=== PATIENT | female | born 1965 | race Caucasian/White ===

== ENCOUNTER 2022-11-07 11:49 | Outpatient (OUT) | payer OTHER, SELFPAY ==
--- NOTE | 2022-11-07 11:48 | XR_ITS ---
The [address] [address] Patient Name: MIMI BOWERS MRN: [id number] date: 1965 Sex: F Assigned Patient Location: [facility] Current Patient Location: [facility] Accession/Order Number: [id number] Exam Date: 11/07/2022 11:48 Report Date: 11/07/2022 20:30 At the request of: BETTE DUFF Procedure: XR foot RT min 3V PROCEDURE: XR foot RT min 3V COMPARISON: 07/11/2022 HISTORY: RIGHT FOOT PAIN FINDINGS: BONES:Stable triple arthrodesis. Posterior calcaneal osteotomy transfixed with 2 cannulated screws. Anterior calcaneal osteotomy and medial cuneiform osteotomy with wedged spacer. No acute fracture, dislocation or mechanical failure. Diffuse permeative pattern of the bones consistent with osteopenia. SOFT TISSUES:Negative. No visible soft tissue swelling. EFFUSION:None visible. OTHER: Negative. IMPRESSION: Stable triple arthrodesis Electronically authenticated by: MARIVEL MONTES DE OCA Date: 11/07/2022 20:30
== END 2022-11-07 11:50 | disposition home or self-care (01) ==
LOC: RAD 11:49
PROVIDERS: Visit Provider Podiatrist Foot & Ankle Surgery
DX: M79.671 Pain in right foot (principal); Z98.1 Arthrodesis status
CPT/HCPCS: 73630

== ENCOUNTER 2023-05-01 10:28 | Outpatient (OUT) | payer OTHER, SELFPAY ==
--- NOTE | 2023-05-01 | XR_ITS ---
The [address] [address] Patient Name: MIMI BOWERS MRN: [id number] date: 1965 Sex: F Assigned Patient Location: [facility] Current Patient Location: [facility] Accession/Order Number: [id number] Exam Date: 05/01/2023 10:37 Report Date: 05/01/2023 14:55 At the request of: BETTE DUFF Procedure: XR foot RT min 3V PROCEDURE: XR foot RT min 3V DATE: 05/01/2023 9:37 AM MANAGER MONITORING COMPARISONS: None CLINICAL INDICATION: RIGHT FOOT PAIN FINDINGS: There is no evidence of fractures or other acute osseous abnormalities. Posterior calcaneal osteotomy fixed by 2 screws remains stable. Lateral hind foot and medial midfoot postop changes also identified, stable Bone demineralization is again identified. Moderate first carpometacarpal degenerative changes again identified. There is mild scattered midfoot degenerative change. There is a small spur off the posterior inferior os calcis. There is mild tibiotalar degenerative change. XR/XR foot RT min 3V IMPRESSION: Stable postop changes right foot when compared to 11/07/2022 Electronically authenticated by: JESS CRESPO Date: 05/01/2023 14:55
== END 2023-05-01 10:29 | disposition home or self-care (01) ==
LOC: RAD 10:28
PROVIDERS: Visit Provider Podiatrist Foot & Ankle Surgery
DX: M21.171 Varus deformity, not elsewhere classified, right ankle (principal)
CPT/HCPCS: 73630

== ENCOUNTER 2023-11-26 09:55 | Outpatient (OUT) | payer OTHER, SELFPAY ==
--- NOTE | 2023-11-26 | XR_ITS ---
[address] [address] Patient Name: MIMI BOWERS MRN: [id number] date: 1965 Sex: F Assigned Patient Location: Current Patient Location: Accession/Order Number: [id number] Exam Date: 11/26/2023 10:02 Report Date: 11/26/2023 15:23 At the request of: BETTE DUFF Procedure: XR ankle RT min 3V PROCEDURE: XR foot RT min 3V, XR ankle RT min 3V COMPARISON: 05/01/2023 HISTORY: RIGHT FOOT PAIN FINDINGS: BONES:No acute fracture or dislocation. Stable triple arthrodesis with posterior calcaneal osteotomy transfixed with 2 screws. Osteotomy and wedged spacer placement anterior calcaneus and medial cuneiform. Moderate degenerative changes with joint space narrowing and marginal osteophyte formation. Enthesopathic spurring of the calcaneus SOFT TISSUES:Negative. No visible soft tissue swelling. EFFUSION:None visible. OTHER: Negative. XR/XR ankle RT min 3V IMPRESSION: Stable triple arthrodesis and degenerative changes Electronically authenticated by: MARIVEL MONTES DE OCA Date: 11/26/2023 15:23
--- NOTE | 2023-11-26 | XR_ITS ---
[address] [address] Patient Name: MIMI BOWERS MRN: [id number] date: 1965 Sex: F Assigned Patient Location: Current Patient Location: Accession/Order Number: [id number] Exam Date: 11/26/2023 09:56 Report Date: 11/26/2023 15:23 At the request of: BETTE DUFF Procedure: XR foot RT min 3V PROCEDURE: XR foot RT min 3V, XR ankle RT min 3V COMPARISON: 05/01/2023 HISTORY: RIGHT FOOT PAIN FINDINGS: BONES:No acute fracture or dislocation. Stable triple arthrodesis with posterior calcaneal osteotomy transfixed with 2 screws. Osteotomy and wedged spacer placement anterior calcaneus and medial cuneiform. Moderate degenerative changes with joint space narrowing and marginal osteophyte formation. Enthesopathic spurring of the calcaneus SOFT TISSUES:Negative. No visible soft tissue swelling. EFFUSION:None visible. OTHER: Negative. XR/XR foot RT min 3V IMPRESSION: Stable triple arthrodesis and degenerative changes Electronically authenticated by: MARIVEL MONTES DE OCA Date: 11/26/2023 15:23
--- OUTSIDE RECORDS SUMMARY | 2023-11-26 10:17 | XMS_ITS | CCD ---
Author Organization [facility] Care Team Providers Care Electric Meter Technician Name Role Phone DRAKE BEULAH Unavailable Unavailable Kaushik Jay MD Primary Care Provider [phone] Kaushik Jay MD Primary Care Provider BETTE DUFF Consulting Unavailable BETTE DUFF Admitting Unavailable HIGHLMAO, BETTE Aguilar Attending Unavailable DENZEL HARRINGTON Consulting Unavailable BETTE DUFF Attending Unavailable BETTE DUFF Consulting Unavailable BETTE DUFF Admitting Unavailable HIGHLMAO, BETTE Aguilar Attending Unavailable ZIEBRAY, DR JERRY Herrera Consulting Unavailable HIGHLANDERBETTE Admitting Unavailable HIGHLANDERBETTE Consulting Unavailable RAGHAVLADAN Consulting Unavailable JUNGERMANNMANN Consulting Unavailable CONCEPCIÓN, BRIDGET WALTON Consulting Unava ilable ARIANA, PADMA Consulting Unavailable BETTE DUFF Attending Unavailable WEST, DR MARIVEL Zurita Consulting Unavailable BETTE DUFF Admitting Unavailable HIGHLANDERBETTE Consulting Unavailable BETTE DUFF Attending Unavailable HIGHLBETTE CAVANAUGH Admitting Unavailable WEST, DR MARIVEL Zurita Consulting Unavailable HIGHLBETTE CAVANAUGH Consulting Unavailable ZIEBER, DR JERRY Herrera Consulting Unavailable NAKUL BERNAL Admitting Unavailable NAKUL BERNAL Attending Unavailable NAKUL BERNAL Consulting Unavailable BETTE DUFF Attending Unavailable HIGHLBETTE CAVANAUGH Admitting Unavailable ZIEBER, DR JRERY Herrera Consulting Unavailable HIGHLBETTE CAVANAUGH Consulting Unavailable ADITI GUEVARA Referring UnavailREX Austin Primary Care Unavailable KAUSHIK JAY Attending Unavailable KAUSHIK JAY Referring Unavailable REX NEVES Primary Care Unavailable Babita Boyce Primary Care Physician Unavailab Babita Gallo Unavailable Unavailable Dusty Eldridge Primary Care Physician Unavail able Medications Current Medications Medication Drug Class(es) Dates Sig (Normalized) Sig (Original) betamethasone 0.5 mg/ml / clotrimazole 10 mg/ml topical cream (1 source) Azole Antifungal, Corticosteroid Start: 07-02-2019 clotrimazole-beta methasone (LOTRISONE) 1-0.05 % cream Indications: Skin yeast infection Apply topically 2 times daily. 1 Tube 1 07/02/2019 Active cetirizine hydrochloride 5 mg oral tablet (1 source) Histamine-1 Receptor Antagonist take 1 tablet by mouth once daily cetirizine (ZYRTEC) 5 MG tablet Take 5 mg by mouth daily 0 Active escitalopram 10 mg oral tablet (4 sources) Serotonin Reuptake Inhibitor Start: 05-14-2019 take 1 tablet by mouth once daily escitalopram (LEXAPRO) 10 MG tablet TAKE 1 TABLET BY MOUTH EVERY DAY 90 tablet 0 05/22/2021 Active fluconazole 150 mg oral tablet (1 source) Azole Antifungal Start: 07-02-2019 fluconazole (DIFLUCAN) 150 MG tablet Indications: Skin yeast infection Take 1 tablet daily for 3 days. 3 tablet 0 07/02/2019 Active loratadine 10 mg oral tablet (2 sources) loratadine (CLARITIN) 10 MG tablet Take 10 mg by mouth 0 Active [place]-3 Fatty Acids (FISH OIL BURP-LESS PO) (2 sources) [place]-3 Fatty Acids (FISH OIL BURP-LESS PO) Take by mouth 0 Active Probiotic Product (PROBIOTIC BLEND PO) (1 source) Probiotic Produc t (PROBIOTIC BLEND PO) Take by mouth 0 Active Completed/Discontinued Medications Medication Drug Class(es) Dates Sig (Normalized) Sig (Original) FIBER COMPLETE PO (2 sources) FIBER COMPLETE P O Take by mouth 0 Active Probiotic 15 billion cell capsule (2 sources) take 1 capsule by mo uth once daily Probiotic 15 billion cell capsule take 1 capsule by oral route daily vitamin B complex capsule (2 sources) take 1 capsule by mo uth once daily vitamin B complex capsule take 1 capsule by oral route daily Zinc Balance 15 mg-1 mg capsule (2 sources) take 1 capsule by mo uth once daily Zinc Balance 15 mg-1 mg capsule take 1 capsule by oral route daily Problems Active Problems Problem Classification Problem Date Documented Date Episodic/Chronic Acquired foot deformities (16 sources) Other acquired deformities of right foot; Translations: [Varus deformity, not elsewhere classified, right ankle] Onset: 12-09-2021 Episodic Anxiety disorders (3 sources) Generalized anxiety disorder; Translations: [Generalized anxiety disorder] Onset: 03-30-2017 03-30-2017 Chronic Neoplasms of unspecified nature or uncertain behavior (2 sources) Neoplasm of uncertain behavior of skin Onset: 10-02-2023 Episodic Other acquired deformities (1 source) Contracture, right ankle; Translations: [CONTRACTURE RIGHT ANKLE] Onset: 05-17-2022 Chronic Other aftercare (1 source) Other ocean transportation intermediary (current) drug therapy; Translations: [OTH [facility] CURRENT DRUG THERAPY] Onset: 05-17-2022 Episodic Other and unspecified benign neoplasm (2 sources) Melanocytic nevi, unspecified Onset: 10-02-2023 Episodic Other and unspecified benign neoplasm (2 sources) Hemangioma of skin and subcutaneous tissue Onset: 10-02-2023 Episodic Other circulatory disease (2 sources) Nevus, non-neoplastic Onset: 10-02-2023 Episodic Other connective tissue disease (5 sources) Posterior tibial tendinitis, right leg; Translations: [POSTERIOR TIBIAL TENDINITIS RT LEG] Onset: 04-21-2022 Episodic Other non-epithelial cancer of skin (2 sources) Unspecified malignant neoplasm of skin, unspecified; Translations: [Basal cell carcinoma of skin of nose] Onset: 11-19-2023 Episodic Other non-traumatic joint disorders (1 source) Other instability, right foot; Translations: [OTHER INSTABILITY RIGHT FOOT] Onset: 05-17-2022 Episodic Other screening for suspected conditions (not mental disorders or infectious disease) (4 sources) Patient encounter status; Translations: [Encounter for screening mammogram for malignant neoplasm of breast] Onset: 12-30-2017 Resolved: 01-29-2018 Episodic Other skin disorders (2 sources) Other melanin hyperpigmentation Onset: 10-02-2023 Episodic Other skin disorders (2 sources) Other seborrheic keratosis Onset: 10-02-2023 Episodic Unclassified (2 sources) Patient encounter status Onset: 12-30-2017 Resolved: 01-29-2018 Unclassified (1 source) CONTACT W/AND (SUSP) EXPOS COVID-19; Translations: [CONTACT W/AND (SUSP) EXPOS COVID-19] Onset: 04-30-2022 Past or Other Problems Problem Classification Problem Date Documented Da te Episodic/Chronic Other connective tissue disease (1 source) Pain in right foot; Translations: [PAIN IN RIGHT FOOT] Onset: 12-09-2021 Episodic Other connective tissue disease (1 source) Pain in left foot; Translations: [PAIN IN LEFT FOOT] Onset: 12-09-2021 Episodic Other non-traumatic joint disorders (4 sources) Pain in right ankle and joints of right foot; Translations: [PAIN IN RIGHT ANKLE] Onset: 12-06-2021 Episodic Other non-traumatic joint disorders (1 source) Pain in left ankle and joints of left foot; Translations: [PAIN IN LEFT ANKLE] Onset: 12-09-2021 Episodic Results Test Name Value Interpretation Reference Range Facility No Panel Informationon 10-01 Tobacco smoking status Non-Smoker Invalid Interpretation Code Dissolve HPV DNA High Riskon 06-15-19 HPV Interp [facility] Comment on above: Result Comment: This test amplifies and detects DNA of 14 high-risk HPV types associated with cervical cancer and its precursor lesions (HPV types 16,18, 31, 33, 35, 39, 45, 51, 52, 56, 58, 59, 66, and 68). Sensitivity may be affected by specimen collection methods, stage of infection, and the presence of interfering substances. Results should be interpreted in conjunction with other available laboratory and clinical data. A negative high-risk HPV result does not exclude the possibility of future cytologic HSIL or underlying CIN2-3 or cancer. This test is intended for medical purposes only and is not valid for the evaluation of suspected sexual abuse or for other forensic purposes. Performed By: #### H PVH #### [facility] [address] [place] [address] [employer] Teacher: Robert Nguyễn MD HPV Type 16 Not detected [facility] Comment on above: Performed By: #### H PVH #### [facility] [place] [address] Public School Teacher: Robert Nguyễn MD HPV Type 18 Not detected [facility] Comment on above: Performed By: #### H PVH #### [facility] [address] [place] [address] Public School Teacher: Robert Nguyễn MD Other High Risk HPV Not detected Normal [facility] Comment on above: Performed By: #### H PVH #### [address] [place], [place] [id number] Public School Teacher: Robert Nguyễn MD HPV DNA High Riskon 06-14-19 24 HPV Sample .THIN PREP Normal [facility] Comment on above: Performed By: #### H PVH #### [address] [id number] Public School Teacher: Robert Nguyễn MD Source CERVICAL MATERIAL Normal [facility] Comment on above: Performed By: #### H PVH #### [address] [id number] Public School Teacher: Robert Nguyễn MD Cytology Reporton 06-13-2023 Cytology report Cyto stain.thin prep Doc (Cvx/Vag) (NOTE) Path Number: [id number] DIAGNOSIS Imaged ThinPrep Pap - Cervical (1 monolayer slide): Specimen Adequacy: Satisfactory for evaluation. - Endocervical/transformati on zone component present. Descriptive Diagnosis: Negative for intraepithelial lesion or malignancy. Comments: Specimen was screened at [facility], [address] [place] [id number] [employer] Screener: SHERRY Electronically Signed Out YEHUDA Marquis(ASCP) cs/07/13/2023 Procedure/Addendum HPV Procedure Report Date Ordered: 06/14/2023 Status: Signed Out Date Complete: 06/15/2023 By: System Interface Date Reported: 06/15/2023 Sample: HPV Type 16 Result: Not Detected Ref Range: (Not Detected) Sample: HPV Type 18 Result: Not Detected Ref Range: (Not Detected) Sample: Other High Risk HPV Result: Not Detected Ref Range: (Not Detected) Sample: HPV Interp Result: Ref Range: (Not Detected) This test amplifies and detects DNA of 14 high-risk HPV types associated with cervical cancer and its precursor lesions (HPV types 16,18, 31, 33, 35, 39, 45, 51, 52, 56, 58, 59, 66, and 68). Sensitivity may be affected by specimen collection methods, stage of infection, and the presence of interfering substances. Results should be interpreted in conjunction with other available laboratory and clinical data. A negative high-risk HPV result does not exclude the possibility of future cytologic HSIL or underlying CIN2-3 or cancer. This test is intended for medical purposes only and is not valid for the evaluation of suspected sexual abuse or for other forensic purposes. Performed at [address] [address] ([phone] Source of Specimen: A: Imaged ThinPrep Pap - Cervical (1 monolayer slide) HPV Reflex?.................. ....HPV Regardless Clinical History Postmenopausal Z12.4 Encounter for screening for malignant neoplasm of cervix LMP: 04/22/2019 Processing Lab: [address] [id number] [place] [address] This Pap Test has been evaluated with the assistance of the ThinPrep Pap Test Imaging System. The Pap smear is a screening test primarily for squamous epithelial lesions, which is subject to both false negative and false positive results. Your patient should be reminded to consult you immediately if she experiences any suspicious signs or symptoms, regardless of her Pap smear result. GYNECOLOGIC CYTOLOGY REPORT Patient Name: MIMI LAMBERT [facility] Rec: [id number] [facility] ANATOMIC PATHOLOGY [address] [place] [address]. [place], [place] [address] Normal [facility] Laboratory - Microbiology an d Antimicrobial susceptibilityon 06-13-2023 HPV 16+18+31+33+35+45+5 1+52+56 DNA Probe Ql (Cvx) HPV-DNA Test Invalid Interpretation Code [facility] [employer] beauty supply [facility] DENNIS DIGITAL SCREEN FREDRICK Moncada 06-12-2023 [facility] DENNIS DIGITAL SCREEN BILATERAL EXAMINATION: SCREENING DIGITAL BILATERAL MAMMOGRAM WITH TOMOSYNTHESIS, 06/12/2023 TECHNIQUE: Screening mammography was performed with tomosynthesis including MLO and CC views of the bilateral breasts. Computer aided detection was used for the interpretation of this exam. COMPARISON: May 29, 2021 and 2016 HISTORY: Screening. FINDINGS: Breasts are composed of scattered fibroglandular density. There is no dominant mass, architectural distortion or concerning grouping of microcalcification in either breast. IMPRESSION: No mammographic evidence of malignancy BIRADS: BIRADS - CATEGORY 1 Negative. Normal interval follow-up is recommended in 12 months. OVERALL ASSESSMENT - NEGATIVE A letter of notification will be sent to the patient regarding the results. The [employer] recommends annual mammograms for women 40 years and older. Interpreted by: Carl Hernandez DO Signed by: Carl Hernandez DO 06/12/23 CC Recipients: Aditi Guevara APRN - CNM - In Basket Final result Normal [facility] Radiologyon 06-12-2023 MG Breast Screening Mammogram Invalid Interpretation Code 50 - 74 Dissolve POINT OF CARE GLUCOSEon 04-12 Glucose [Mass/Vol] 120 mg/dL Critically high 74-106 [facility] Comment on above: Performed By: #### P OCGLUC ####[facility] [id number] [place], [place] [address]Kx. Aleyda Hwang Glucose [Mass/Vol] 86 mg/dL Normal 74-106 [facility] Comment on above: Performed By: #### P OCGLUC ####[facility] [id number] [id number]. Aleyda Hwang Covid-19 PCR (CVDTBH)on 04-12 SARS-CoV-2 (COVID-19) RNA KIT+probe Ql (Unsp spec) Not detected Normal NOT DETECTED [facility] Comment on above: Result Comment: This test is not yet approved or cleared by the [place] FDA. When there are no FDA-approved or cleared tests available, and other criteria are met, FDA can make tests available under an emergency access mechanism called an Emergency Use Authorization (EUA). The EUA for this test is supported by the [place] of Health and Human Service's (HHS's) declaration that circumstances exist to justify the emergency use of in vitro diagnostics for the detection and/or diagnosis of the virus that causes COVID-19. This EUA will remain in effect (meaning this test can be used) for the duration of the COVID-19 declaration justifying emergency of IVDs, unless it is terminated or revoked by FDA (after which the test may no longer be used). When diagnostic testing is negative, the possibility of a false negative should be considered in the context of a patient's recent exposures and the presence of clinical signs and symptoms consistent with SARS-CoV-2. Performed By: #### [facility] #### [facility] [address] [place] [address] Dr. Aleyda Hwang CBC AUTO DIFFon 04-16-2022 BASO # 0.0 103/ul Normal 0.0-0.1 [facility] Comment on above: Performed By: #### C BC #### [facility] [address] [place] [address] Dr. Aleyda Hwang Basophils/100 WBC (Bld) 0.5 % Normal 0.2-2.0 [facility] Comment on above: Performed By: #### C BC #### [facility] [address] [place] [address] Dr. Aleyda Hwang EO # 0.3 103/ul Normal 0.0-0.7 [facility] Comment on above: Performed By: #### C BC #### [facility] [address] [place] [address] Dr. Aleyda Hwang Eosinophils/100 WBC (Bld) 4.5 % Normal 0.9-7.0 [facility] Comment on above: Performed By: #### C BC #### [facility] [address] [place] [address] Dr. Aleyda Hwang Erythrocyte distribution width (RBC) [Ratio] 12.8 % Normal 11.0-15.0 [facility] Comment on above: Performed By: #### C BC #### [facility] [address] [place] [address] Dr. Aleyda Hwang Hematocrit (Bld) [Volume fraction] 39.5 % Normal 36.0-48.0 [facility] Comment on above: Performed By: #### C BC #### [facility] [address] [place] [address] Dr. Aleyda Hwang Hemoglobin (Bld) [Mass/Vol] 13.4 g/dL Normal 12.0-16.0 [facility] Comment on above: Performed By: #### C BC #### [facility] [address] [place] [address] Dr. Aleyda Hwang IG # 0.02 10e3/ul Normal 0.00-0.03 [facility] Comment on above: Performed By: #### C BC #### [facility] [address] [place] [address] Dr. Aleyda Hwang IG % 0.3 % Normal 0.0-0.5 [facility] Comment on above: Performed By: #### C BC #### [facility] [address] [place] [address] Dr. Aleyda Hwang LYMPH # 1.7 103/ul Normal 1.2-3.8 [facility] Comment on above: Performed By: #### C BC #### [facility] [address] [place] [address] Dr. Aleyda Hwang Lymphocytes/100 WBC (Bld) 26.9 % Normal 20.5-60.0 [facility] Comment on above: Performed By: #### C BC #### [facility] [address] [place] [address] Dr. Aleyda Hwang MANUAL DIFF REQ NO Normal [facility] Comment on above: Performed By: #### C BC #### [facility] [address] [place] [address] Dr. Aleyda Hwang MCH (RBC) [Entitic mass] 30.1 pg Normal 26.7-34.0 [facility] Comment on above: Performed By: #### C BC #### [facility] [address] [place] [address] Dr. Aleyda Hwang MCHC (RBC) [Mass/Vol] 33.9 g/dL Normal 29.9-35.2 [facility] Comment on above: Performed By: #### C BC #### [facility] [address] [place] [address] Dr. Aleyda Hwang MCV (RBC) [Entitic vol] 88.8 fL Normal 81.0-99.0 [facility] Comment on above: Performed By: #### C BC #### [facility] [address] [place] [address] Dr. Aleyda Hwang MONO # 0.4 103/ul Normal 0.3-0.8 [facility] Comment on above: Performed By: #### C BC #### [facility] [address] [place] [address] Dr. Aleyda Hwang Monocytes/100 WBC (Bld) 6.8 % Normal 1.7-12.0 [facility] Comment on above: Performed By: #### C BC #### [facility] [address] [place] [address] Dr. Aleyda Hwang NEUT # 3.8 103/ul Normal 1.4-6.5 [facility] Comment on above: Performed By: #### C BC #### [facility] [address] [place] [address] Dr. Aleyda Hwang Neutrophils/100 WBC (Bld) 61.0 % Normal 43.0-75.0 [facility] Comment on above: Performed By: #### C BC #### [facility] [address] [place] [address] Dr. Aleyda Hwang Platelet mean volume (Bld) [Entitic vol] 8.7 fL Critically low 9.5-13.5 [facility] Comment on above: Performed By: #### C BC #### [facility] [address] [place] [address] Dr. Aleyda Hwang PLT 202 103/ul Normal 150-450 [facility] Comment on above: Performed By: #### C BC #### [facility] [address] [place] [address] Dr. Aleyda Hwang RBC 4.45 106/ul Normal 4.20-5.40 [facility] Comment on above: Performed By: #### C BC #### [facility] [address] [place] [address] Dr. Aleyda Hwang WBC 6.2 103/ul Normal 4.0-11.0 [facility] Comment on above: Performed By: #### C BC #### [facility] [address] [place] [address] Dr. Aleyda Hwagn PROF CHEM 8 (BAS METB)on Anion gap [Moles/Vol] 10.7 mmol/L Normal [facility] Comment on above: Performed By: #### B MP #### [facility] [address] [place] [address] Dr. Aleyda Hwang Calcium [Mass/Vol] 9.6 mg/dL Normal 8.5-10.1 [facility] Comment on above: Performed By: #### B MP #### [facility] [address] [place] [address] Dr. Aleyda Hwang Chloride [Moles/Vol] 102 mmol/L Normal 98-107 [facility] Comment on above: Performed By: #### B MP #### [facility] [address] [place] [address] Dr. Aleyda Hwang CO2 [Moles/Vol] 31.3 mmol/L Normal 21.0-32.0 [facility] Comment on above: Performed By: #### B MP #### [facility] [address] [place] [address] Dr. Aleyda Hwang Creatinine [Mass/Vol] 0.71 mg/dL Normal 0.55-1.02 [facility] Comment on above: Performed By: #### B MP #### [facility] [address] [place] [address] Dr. Aleyda Hwang EGFR-AF MALIAN >60 Normal >=60 [facility] Comment on above: Performed By: #### B MP #### [facility] [address] [place] [address] Dr. Aleyda Hwang EGFR-NON AF MALIAN >60 Normal >=60 [facility] Comment on above: Performed By: #### B MP #### [facility] [address] [place] [address] Dr. Aleyda Hwang Glucose [Mass/Vol] 96 mg/dL Normal 74-106 [facility] Comment on above: Performed By: #### B MP #### [facility] [address] [address] [address] Aleyda Hwang Potassium [Moles/Vol] 4.0 mmol/L Normal 3.5-5.1 [facility] Comment on above: Performed By: #### B MP #### [facility] [address] [address] [address] Aleyda Hwang Sodium [Moles/Vol] 140 mmol/L Normal 136-145 [facility] Comment on above: Performed By: #### B MP #### [facility] [address] [address] [address] Aleyda Hwang Urea nitrogen [Mass/Vol] 16.0 mg/dL Normal 7.0-18.0 [facility] Comment on above: Performed By: #### B MP #### [facility] [address] [address] [address] Aleyda Hwang Urea nitrogen/Creatinine [Mass ratio] 22.5 mg/mg Normal [facility] Comment on above: Performed By: #### B MP #### [facility] [address] [address] [address] Aleyda Hwang XR FOOT ROJELIO MIN 3 VIEWSon XR FOOT ROJELIO MIN 3 VIEWS EXAMINATION: XR ANKLE ROJELIO MIN 3 VIEWS, XR FOOT ROJELIO MIN 3 VIEWS HISTORY: Bilateral ankle joint pain COMPARISON: No relevant comparison available. FINDINGS: RIGHT FINDINGS: BONES: No acute fracture or dislocation. Marked flattening of the plantar arch. Mild degenerative changes. Mild enthesopathic spurring of the calcaneus. SOFT TISSUES: Negative. No visible soft tissue swelling. OTHER: Negative. LEFT FINDINGS: BONES: Posterior calcaneal osteotomy transfixed with 2 cannulated lag screws. Medial plate and screws across the medial and intermediate cuneiform. Moderate flattening of the plantar arch SOFT TISSUES: Negative. No visible soft tissue swelling. OTHER: Negative. IMPRESSION: RIGHT CONCLUSION: Pes planus LEFT CONCLUSION: Postsurgical changes Electronically authenticated by: MARIVEL MONTES DE OCA Date: 2021-12-07 06:24 Normal [facility] DOLLY DENNIS DIGITAL SCREEN SELF REFERRAL W OR WO CAD BILATERALon 05-29-2021 No mammographic evid ence of malignancy. Based on the Tyrer-Cuzick (JOSE L) model, this patient's lifetime risk for developing breast cancer is 21.5%. The [employer] considers women with a 20 percent or greater lifetime risk for developing breast cancer as high risk . Women at risk for breast cancer may benefit from additional screening, which may include an annual screening mammogram alternating every six (6) months with a breast MRI, as appropriate. Recommend that this patient consult with her preferred provider about: A Genetic Counseling Consultation to discuss formal risk assessment, and a Medical Oncology Consultation to discuss risk reduction strategies. Assistance, if requested, is available through the [facility] at [phone], or by placing an [facility] Ambulatory referral to the High-Risk Breast Clinic . BIRADS: BIRADS - CATEGORY 1 Negative. Normal interval follow-up is recommended in 12 months. OVERALL ASSESSMENT - NEGATIVE A letter of notification will be sent to the patient regarding the results. The [employer] recommends annual mammograms for women 40 years and older. [facility] EXAMINATION: SCREENING DIGITAL BILATERAL MAMMOGRAM WITH TOMOSYNTHESIS, 05/29/2021 TECHNIQUE: Screening mammography of the bilateral breasts was performed with tomosynthesis. 2D standard and 3D tomosynthesis combination imaging performed through both breasts in the MLO and CC projection. Computer aided detection was utilized in the interpretation of this exam. COMPARISON: 2016, 08 May 2013 HISTORY: Screening. Calculated Tyrer-Cuzick lifetime risk score is 21.5% FINDINGS: There are scattered areas of fibroglandular density. No new or concerning masses, suspicious calcifications, foci of architectural distortion or significant interval changes are detected. [facility] Radiology Study observation (narrative) [employer] Phone: [facility] DENNIS DIGITAL SCREEN SELF REFERRAL W OR WO CAD BILATERALOrdered By: Eran Jolly on 05-29-2021 [employer] Phone: POTASSIUMon 08-15-2017 Potassium molar conc 4.6 mmol/L Normal 3.5-5.4 [facility] Comment on above: Result Comment: EFFECTIVE 06/24/2017 CLINICAL CHEMISTRY PLATFORM CHANGES IN MAIN LABORATORY ARE ASSOCIATED WITH REFERENCE RANGE CHANGES FOR A NUMBER OF ANALYTES. PLEASE REVIEW REFERENCE INTERVALS CAREFULLY Pat Yorxs, [place]. [address] [place], [place] [address]Laboratory Director: Josue Cristobal M.D.CLIA No. [id number] CAP Accreditation No. [id number] COMPREHENSIVE METABOLIC PANE L WITH GFRon 08-06-2017 Alanine aminotransferase (ALT) 15 U/L Normal 5-40 [facility] Albumin 4.3 g/dL Normal 3.5-5.2 [facility] ALK PHOS 57 U/L Normal 30-103 [facility] Anion gap 11 mmol/L Normal 10-19 [facility] AST-SGOT 20 U/L Normal 9-40 [facility] Bilirubin (direct) 0.4 mg/dL Normal <1.3 [facility] Calcium 9.6 mg/dL Normal 8.5-10.5 [facility] Chloride 103 mmol/L Normal 95-107 [facility] CO2 27 mmol/L Normal 19-31 [facility] Creatinine 0.7 mg/dL Normal 0.6-1.3 [facility] eGFR (black) 116.3 mL/min/1.73 m2 Normal >59 [facility] eGFR (non-black) 100.3 mL/min/1.73 m2 Normal >59 [facility] Comment on above: Result Comment: * ES TIMATED GFR (eGFR) IS CALCULATED FROM SERUM CREATININE AND OTHER VARIABLES AFFECTING ITS VALUE (AGE, RACE, AND SEX). * FOR PATIENT WITH ESTABLISHED CHRONIC KIDNEY DISEASE, THE CHART BELOW DEFINES STAGES WITH eGFR VALUES. Stage 1 90 mL/min/1.73 m2 or greater Stage 2 60-89 mL/min/1.73 m2 Stage 3 30-59 mL/min/1.73 m2 Stage 4 15-29 mL/min/1.73 m2 Stage 5 14 mL/min/1.73 m2 or less Glucose mass conc 91 mg/dL Normal 70-99 [facility] Comment on above: Result Comment: DIAG NOSTIC THRESHOLDS FOR DIABETES AND IMPAIRED FASTING GLUCOSE (IFG) FASTING PLASMA GLUCOSE NORMAL <100 mg/dL IFG 100-125 mg/dL DIABETES >/= 126 mg/dL GESTATIONAL DIABETES >/= 92 mg/dL Potassium molar conc 5.6 mmol/L High 3.5-5.4 [facility] Comment on above: Result Comment: P LEASE NOTE: This result has been confirmed by duplicate analysis. Hemolysis (which may affect the result) WAS NOT present. Sodium 141 mmol/L Normal 135-146 [facility] T. PROTEIN 6.3 g/dL Normal 6.1-8.3 [facility] Urea nitrogen 17 mg/dL Normal 8-23 [facility] LIPID PANEL (INCLUDES CALCUL ATED LDL)on 08-06-2017 Cholesterol 188 mg/dL Normal <200 [facility] Cholesterol to HDL Ratio 2.8 {ratio} Normal <5 [facility] HDL-CHOL 67 mg/dL Normal >39 [facility] Comment on above: Result Comment: HDL <40 mg/dL IS A RISK FACTOR FOR CORONARY HEART DISEASE. HDL >60 mg/dL IS A NEGATIVE RISK FACTOR FOR CORONARY HEART DISEASE. LDL to HDL Ratio 1.6 Normal <3.5 [facility] LDL-CHOL, CALCULATED 109 mg/dL Normal <130 [facility] Comment on above: Result Comment: LDL CHOLESTEROL REFERENCE RANGE FOR 0-19 YEARS: DESIRABLE <110 mg/dL, BORDERLINE 110-129, HIGH RISK >130 LDL CHOLESTEROL REFERENCE RANGE FOR ADULTS: DESIRABLE <100 mg/dL, BORDERLINE 130-159, HIGH RISK >160REFERENCE RANGES REVISED 10/21/15 ACCORDING TO NCEP GUIDELINES Triglyceride 60 mg/dL Normal <150 [facility] VLDL-CHOL, CALCULATED 12 mg/dL Normal <30 [facility] TSHon 08-06-2017 Thyroid stimulating hormone (TSH) 1.06 uIU/mL Normal 0.40-4.10 [facility] Comment on above: Result Comment: EFFECTIVE 06/24/2017 CLINICAL CHEMISTRY PLATFORM CHANGES IN MAIN LABORATORY ARE ASSOCIATED WITH REFERENCE RANGE CHANGES FOR A NUMBER OF ANALYTES. PLEASE REVIEW REFERENCE INTERVALS CAREFULLY Pat Yorxs, [place]. [address] [place], [place] [address]Laboratory Director: Josue Cristobal M.D.CLIA No. [id number] CAP Accreditation No. [id number] CBC W/AUTO DIFFon 08-05-2017 % NEUTROPHILS 65.4 % Normal [facility] ABS BASOPHILS 0.0 K/ul Normal 0.0-0.1 [facility] Basophils/100 WBC Auto (Bld) 0.6 % Normal [facility] Eosinophils 0.2 10*3/uL Normal 0.1-0.4 [facility] Eosinophils/100 leukocytes 2.7 % Normal [facility] Erythrocyte distribution width Auto Ratio (RBC) 12.7 % Normal 10.8-14.8 [facility] Erythrocytes (RBC) 4.23 10*6/uL Normal 4.00-5.50 [facility] Hematocrit (HCT) 39.3 % Normal 36.0-48.0 [facility] Hemoglobin mass conc (Bld) 13.3 g/dL Normal 12.0-16.0 [facility] Lymphocytes 1.6 10*3/uL Normal 0.8-5.2 [facility] Lymphocytes/100 leukocytes 23.8 % Normal [facility] MCH 31.4 pg Normal 27.0-34.0 [facility] MCHC mass conc (RBC) 33.8 g/dL Normal 31.0-36.0 [facility] MCV 92.9 fL Normal 80.-100. [facility] Monocytes 0.5 10*3/uL Normal 0.1-0.9 [facility] Monocytes/100 leukocytes 7.2 % Normal [facility] Neutrophils 4.3 10*3/uL Normal 1.3-9.1 [facility] Platelets 212 10*3/uL Normal 150.-450. [facility] WBC (Leukocytes) 6.6 10*3/uL Normal 3.7-10.8 [facility] CNOVon 12-27-2016 CNOV Office Visit (ORTHAB) PATSY LAMBERT Yesenia ([id number]) 1965 FDate Time Provider Department12/27/16 11:30 AM BEULAH JUAN During your visit today, we recorded the following information about you:Beulah Juan DPM 12/27/2016 12:15 PM SignedPatient Visit for Mimi Patterson Martinolimpiamarivel 1965 51 year old femaleSUBJECTIVE:Chief Complaint:Numbness and tingling LEFT FOOTStatus post posterior tibial tendon repair valgus hind footHPI: status post posterior tibial tendon rupture repair with repair valgus hindfootNo symptoms arch or hind footHas been walking with full activity ad tika with out symptomsConcerned with numbness and tingling plantar lateral LEFT FOOTPCP: Marisol Valles past medical history on file.Current Outpatient Prescriptions:HERBAL COMPLEX NO.218 (SERENAGEN ORAL) Take by mouth.[place]-3 Fatty Acids-Vitamin E (FISH OIL) 1,000 mg cap Take 1 capsule by mouth.PSYLLIUM SEED, WITH SUGAR, (METAMUCIL ORAL) Take by mouth.loratadine (CLARITIN) 10 mg tablet Take 10 mg by mouth once daily.No current facility-administered medications for this visit.ALLERGIESNo Known AllergiesPAST SURGICAL [id number]: [id number]: VEIN SURGERY (SPECIFY LOCATION) HX RightFAMILY HISTORY Arthritis Father Asthma Mother Heart FatherSocial History Marital status: Spouse name: Years of education: Number of children:Social History Main Topics Smoking status: Never Smoker Smokeless status: Never Used Alcohol use: No Drug use: NoTobacco Use: NeverREVIEW OF SYSTEMSAll other reviewed and negative other than HPI.OBJECTIVE:General: Pleasant in no acute distressLower extremity exam:Vascular exam:Normal vascular exam, palpable pluses with brisk capillary fillNeurological exam:Perception of numbness and tingling plantar lateral LEFT FOOT 5th toe withminimal symptomsOverall normal neurological exam, gross epicritic sensation intactDermatological exam:Well healed scars from previous surgeryMusculoskeletal exam:Prominence of bone or hardware dorsal medial foot asymptomaticArch maintained with weight bearingMild midfoot and hind foot stiffnessOverall Range of Motion intact and relatively normal to ankle and footManual muscle strength evaluation intactOther Range of Motion intact and relatively normal to ankle and footASSESSMENT:M21.072 Valgus foot deformity, acquired, left (primary encounter diagnosis)M19.072 DJD (degenerative joint disease), ankle and foot, leftZ09 Surgery follow-up osyefgtnkrjJ29.0, R20.2 Numbness and tingling of footPLAN:Explained to the patient etiology and treatment plan.Treatment options discussed [facility] observe for nowI discussed with the patient new custom molded Foot OrthosisShe has an old set of custom molded Foot OrthosisAll questions were answered. Mimi Lambert appeared to be well informed.Beulah Jaun DPMReferring Provider: SELF [[id number]]Allergies As of Date: 12/27/2016(No Known Allergies)Date Reviewed: 12/27/2016Reviewed by: Chana Nichols Ma - Fully AssessedReason for Visit: Post Op [174] Cmt: Left footPrimary Visit Diagnosis:Valgus foot deformity, acquired, left [M21.072] Other Visit Diagnoses:DJD (degenerative joint disease), ankle and foot, left [M19.072] Surgery follow-up examination [Z09] Numbness and tingling of foot [R20.0, R20.2]Prescriptions as of 12/27/2016 Sig: SERENAGEN ORAL Take by mouth. OMEGA-3 FATTY ACIDS-VITAMIN E* Take 1 capsule by mouth. METAMUCIL ORAL Take by mouth. LORATADINE 10 MG TABLET Take 10 mg by mouth once ev*Problem List As Of Date 12/27/2016 Noted Resolved PTTD (posterior tibial tendon dysfunction) [M21*INVALID FOR*02/09/2016 Valgus foot deformity, acquired [M21.079] INVALID FOR* DJD (degenerative joint disease), ankle and álvaro*INVALID FOR* Pain in left foot [M79.672] INVALID FOR* Tibialis posterior tendon rupture [S96.819A] INVALID FOR* Surgery follow-up examination [Z09] INVALID FOR*Medications Discontinued During This Encounter oxyCODONE ER (OXYCONTIN) 20 mg 12 hr* 12 t* 0 06/13/2016 12/27/2016 Class: Print RX Route: ORAL Sig: Take 1 tablet by mouth every 12 hours. Disc: Discontinued by Patient ondansetron (ZOFRAN) 8 mg tablet 20 t* 1 06/13/2016 12/27/2016 Class: Print RX Route: ORAL Sig: Take 1 tablet by mouth every 8 hours as needed for Nausea/Vomiting (take 30 minutes prior to narcotic pain medication). Disc: Discontinued by Patient cyclobenzaprine (FLEXERIL) 10 mg tab* 20 t* 1 06/13/2016 12/27/2016 Class: Print RX Route: ORAL Sig: Take 1 tablet by mouth three times daily as needed for Muscle Spasm. Disc: Discontinued by Patient oxyCODONE-acetaminophen (PERCOCET) 5* 40 t* 0 06/13/2016 12/27/2016 Class: Print RX Route: ORAL Sig: Take 2 tablets by mouth every 6 hours as needed for Pain. Indications: PAIN Disc: Discontinued by PatientEncounter Number: [id number] Status:Closed by BEULAH JUAN DPM on 12/27/16 [facility] PROGRESSon 12-27-2016 PROGRESS HNO ID: [id number] thor: Beulah Perez: (none)Author Type: PhysicianType: Progress NotesFiled: 12/27/2016 12:15 PMNote Text:Patient Visit for Mimi Yesenia Lambert year old femaleSUBJECTIVE:Chief Complaint:Numbness and tingling LEFT FOOTStatus post posterior tibial tendon repair valgus hind footHPI: status post posterior tibial tendon rupture repair with repair valgushind footNo symptoms arch or hind footHas been walking with full activity ad tika with out symptomsConcerned with numbness and tingling plantar lateral LEFT FOOTPCP: Marisol Valles past medical history on file.Current Outpatient Prescriptions:HERBAL COMPLEX NO.218 (SERENAGEN ORAL) Take by mouth.[place]-3 Fatty Acids-Vitamin E (FISH OIL) 1,000 mg cap Take 1 capsule bymouth.PSYLLIUM SEED, WITH SUGAR, (METAMUCIL ORAL) Take by mouth.loratadine (CLARITIN) 10 mg tablet Take 10 mg by mouth once daily.No current facility-administered medications for this visit.ALLERGIESNo Known AllergiesPAST SURGICAL [id number]: [id number]: VEIN SURGERY (SPECIFY LOCATION) HX RightFAMILY HISTORY Arthritis Father Asthma Mother Heart FatherSocial History Marital status: Spouse name: Years of education: Number of children:Social History Main Topics Smoking status: Never Smoker Smokeless status: Never Used Alcohol use: No Drug use: NoTobacco Use: NeverREVIEW OF SYSTEMSAll other reviewed and negative other than HPI.OBJECTIVE:General: Pleasant in no acute distressLower extremity exam:Vascular exam:Normal vascular exam, palpable pluses with brisk capillary fillNeurological exam:Perception of numbness and tingling plantar lateral LEFT FOOT 5th toe withminimal symptomsOverall normal neurological exam, gross epicritic sensation intactDermatological exam:Well healed scars from previous surgeryMusculoskeletal exam:Prominence of bone or hardware dorsal medial foot asymptomaticArch maintained with weight bearingMild midfoot and hind foot stiffnessOverall Range of Motion intact and relatively normal to ankle and footManual muscle strength evaluation intactOther Range of Motion intact and relatively normal to ankle and footASSESSMENT:M21.072 Valgus foot deformity, acquired, left (primary encounterdiagnosis)M19.07 2 DJD (degenerative joint disease), ankle and foot, leftZ09 Surgery follow-up xxsuelydswvX66.0, R20.2 Numbness and tingling of footPLAN:Explained to the patient etiology and treatment plan.Treatment options discussed at [facility] observe for nowI discussed with the patient new custom molded Foot OrthosisShe has an old set of custom molded Foot OrthosisAll questions were answered. Mimi Lambert appeared to be wellinformed.Beulah Juan DPM Normal [facility] Encounters Encounter Date Encounter Type Care Provider Facility Start: 11-19-2023 [facility] SUJIT jackson Other [facility] Office Start: 10-02-2023 Office outpatient ne w 30 minutes Babita Boyce Other [facility] Office Start: 06-13-2023 End: 06-14-2023 [facility] Start: 06-12-2023 End: 06-15-2023 ambulatory KAUSHIK JAY [facility] Start: 07-11-2022 End: 07-12-2022 ambulatory BETTE DUFF Facility:[facility]1 Start: 06-12-2022 End: 06-13-[address] JERRY ZHANG Facility:[facility]1 Start: 05-25-2022 End: 05-26-2022 [facility] Start: 04-30-2022 Encounter for preprocedural laboratory examination [facility] Start: 04-30-2022 End: 04-30-2022 ambulatory BETTE Aguilar [facility] Facility:H1 Start: 04-26-2022 End: 04-27-2022 ambulatory BETTE Aguilar [facility] Facility:H1 Start: 04-26-2022 End: 04-27-2022 Encounter for preprocedural laboratory examination BETTE Aguilar [facility] Facility:H1 Start: 04-21-2022 Encounter for other preprocedural examination [facility] Start: 04-16-2022 End: 04-17-2022 ambulatory BETTE Aguilar [facility] Facility:H1 Start: 12-06-2021 End: 12-07-2021 ambulatory BETTE Aguilar [facility] Facility:H1 Start: 05-29-2021 End: 05-31-2021 Subsequent hospital visit by physician [facility] Mammography Comment on above: Breast cancer screen ing by mammogram Start: 05-21-2019 End: 05-21-2019 Subsequent hospital visit by physician Kaushik Jay MD Work Phone: [facility] Laboratory Comment on above: Encounter for annual routine gynecological examination Start: 12-27-2016 End: 12-27-2016 Ambulatory BEULAH JUAN [facility] Procedures Date Procedure Procedure Detail Performing Clinician Start: 11-19-2023 Docrev cur meds by e lig clin Dusty Eldridge Start: 11-19-2023 [facility] surgery Dusty fraser Start: 05-29-2021 Screening mammograph y bi 2-view breast inc cad Aditi Guevara [employer] Work Phone: Start: 05-21-2019 Microscopic observat ion [Identifier] in Cervix by Cyto stain [facility] Plan of Treatment Date Care Activity Detail Author Start: 08-05-2022 Lipid panel Lipid screen [facility] Start: 08-05-2022 Lipid screen Lipid screen [facility] Work Phone: Start: 05-29-2022 Screening for malign ant neoplasm of breast Breast cancer screen [facility] Start: 05-21-2022 Screening for malign ant neoplasm of cervix [facility] Start: 02-28-2022 Depression Screen Depression Screen [facility] Start: 06-13-2021 End: 06-13-2021 Patient encounter procedure 06/13/2021 Office Visit Primary Care Kaushik Jay MD [address] [place] [address] [facility] Start: 01-28-2021 COVID-19 Vaccine (3 - Booster for Pfizer series) COVID-19 Vaccine (3 - Booster for Pfizer series) [facility] Start: 01-11-2021 Influenza vaccination Flu vaccine (# 1) [facility] Start: 05-21-2020 HIV screen HIV screen [facility] Work Phone: Comment on above: Postponed from 05/15 (Patient Refused) Start: 05-21-2020 Influenza vaccination Flu vaccine (# 1) [facility] Work Phone: Comment on above: Postponed from 01/11 (Patient Refused) Start: 05-21-2020 Shingles Vaccine (1 of 2) Shingles Vaccine (1 of 2) [facility] [employer] Phone: Comment on above: Postponed from 05/15 (Unavailable) Start: 06-11-2019 DTaP/Tdap/Td vaccine (1 - Tdap) DTaP/Tdap/Td vaccine (1 - Tdap) [facility] Work Phone: Comment on above: Postponed from 05/15 (Not Indicated) Start: 04-17-2019 Cervical cancer screen Cervical canc er screen [employer] Phone: Start: 2017 Breast cancer screen Breast cancer s vandaen [employer] Phone: Start: 2016 Colon cancer screen colonoscopy Colon cancer screen colonoscopy [employer] Phone: Start: 2016 Shingles Vaccine (1 of 2) Shingles Vaccine (1 of 2) [facility] Start: 2011 Screening for malign ant neoplasm of colon Colon cancer screen colonoscopy [facility] Start: 2001 Diabetes screen Diabetes screen [facility] Start: 1996 Screening for malign ant neoplasm of cervix HPV (without or with Pap) [facility] Start: 1985 DTaP/Tdap/Td vaccine (1 - Tdap) DTaP/Tdap/Td vaccine (1 - Tdap) [facility] Start: 1981 HIV screening HIV screen [employer] [facility] Start: 1966 Hepatitis C screening Hepatitis C sc reen [facility] End: 05-21-2019 Cytopathology procedure, preparation of smear, genital source PAP SMEAR Lab Routine Encounter for annual routine gynecological examination 1 Occurrences starting 05/21/2019 until 05/21/2019 [employer] Phone: Comment on above: 1 Occurrences starti ng 05/21/2019 until 05/21/2019 Payers Date Payer Category Payer Unknown [employer] [address] xxxxxxxxxxxx 2015-Present [phone] [address] [place] [address] xxxxxxxxxxxx [id number] 1965 Unknown [id number] 1965 Unknown [id number] 1965 Unknown [id number] 1965 Unknown [id number] 1965 Unknown [id number] 1965 Unknown [id number] 1965 Unknown [id number] 1965 Unknown [id number] 1965 Unknown [id number] 1959 Unknown [id number] Social History Date Type Detail Facility Start: 05-04-2013 End: 05-21-2019 Tobacco smoking status [facility] Never smoked tobacco [employer] Phone: Start: 05-04-2013 Tobacco use and exposure Smokeless tobacco non-user [employer] Phone: Start: 05-21-2019 End: 05-29-2021 Alcohol intake Current non-drinker of alcohol (finding) [employer] Phone: Start: 02-28-2021 History 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 Wedge spacer medial cuneiform and anterior calcaneus. Posterior calcaneal osteotomy transfixed with 2 screws. Moderate diffuse degenerative change. Diffuse osteopenia.. Moderate degenerative change first metatarsal-phalangeal joint SOFT TISSUES:Negative. No visible soft tissue swelling. EFFUSION:None visible. OTHER: Negative. IMPRESSION: Stable triple arthrodesis, osteopenia and osteoarthritis Electronically authenticated by: MARIVEL MONTES DE OCA Date: 2022-07-11 17:48 [facility] Clinical Note 06-12-2022 Note Date & Type Note Facility 06-12-2022 Note PROCEDURE: XR FOOT R T MIN 3 VIEWS HISTORY: Pain in right foot COMPARISON: XR foot right 05/25/2022 FINDINGS: BONES:Anterior and posterior calcaneal osteotomy and repair. Osteotomy and wedge placement within the medial cuneiform. Mild degenerative changes the first metatarsophalangeal joint. SOFT TISSUES:Mild soft tissue swelling. Skin priyanka have been removed. EFFUSION:None visible. OTHER: Negative. IMPRESSION: 1. Stable surgical changes without evidence of hardware failure or change in alignment. 2. Interval removal of skin priyanka. Electronically authenticated by: JERRY ZHANG Date: 2022-06-12 15:11 [facility] Clinical Note 05-25-2022 Note Date & Type Note Facility 05-25-2022 Note PROCEDURE: XR FOOT R T MIN 3 VIEWS HISTORY: Pain in right foot COMPARISON: XR foot right 04/30/2022 FINDINGS: BONES:Anterior and posterior calcaneal osteotomy with repair. Osteotomy of the medial cuneiform with wedge placement. SOFT TISSUES:Mild soft tissue swelling. Skin priyanka medial and lateral to the ankle. Cast material has been removed. EFFUSION:None visible. OTHER: Negative. IMPRESSION: 1. Stable surgical changes without evidence of hardware failure or change in alignment. Electronically authenticated by: JERRY ZHANG Date: 2022-05-25 16:11 [facility] Clinical Note 05-01-2022 Note Date & Type Note Facility 05-01-2022 Note PROCEDURE: XR FOOT R T MIN 3 VIEWS, XR ANKLE RT MIN 3 VIEWS HISTORY: Pain COMPARISON: XR foot right 04/30/2022 intraoperative images FINDINGS: BONES:Triple arthrodesis of right foot with stable hardware and bone alignment. No fracture or dislocation. SOFT TISSUES:Soft tissue swelling with medial and lateral skin priyanka. EFFUSION:None visible. OTHER: Images were obtained through cast material. IMPRESSION: 1. Stable surgical changes without evidence of hardware failure or change in alignment compared to intraoperative images. Electronically authenticated by: JERRY ZHANG Date: 2022-04-30 22:03 [facility] Clinical Note 05-01-2022 Note Date & Type Note Facility 05-01-2022 Note PROCEDURE: XR FOOT R T MIN 3 VIEWS, XR ANKLE RT MIN 3 VIEWS HISTORY: Pain COMPARISON: XR foot right 04/30/2022 intraoperative images FINDINGS: BONES:Triple arthrodesis of right foot with stable hardware and bone alignment. No fracture or dislocation. SOFT TISSUES:Soft tissue swelling with medial and lateral skin priyanka. EFFUSION:None visible. OTHER: Images were obtained through cast material. IMPRESSION: 1. Stable surgical changes without evidence of hardware failure or change in alignment compared to intraoperative images. Electronically authenticated by: JERRY ZHANG Date: 2022-04-30 22:03 [facility] Clinical Note 04-30-2022 Note Date & Type Note Facility 04-30-2022 Note PROCEDURE: XR FOOT R T 2V HISTORY: Pain COMPARISON: None. FINDINGS: BONES:Anterior and posterior calcaneal osteotomy with wedge placement anteriorly and screw fixation posteriorly. Osteotomy and wedge placement within the medial cuneiform. SOFT TISSUES:Expected intraoperative findings. EFFUSION:None visible. OTHER: Negative. IMPRESSION: 1. Surgical changes as detailed above. Electronically authenticated by: JERRY ZHANG Date: 2022-04-30 21:59 [facility] Evaluation note Note Date & Type Note Facility Evaluation note Diagnosis Breast cancer screening by mammogram documented in this encounter [employer]: Evaluation note Note Date & Type Note Facility Evaluation note Diagnosis Encounter for annual routine gynecological examination documented in this encounter [employer]: Summary Purpose Family History No Family History Records FoundNo Family History Records FoundNo Family History Records FoundNo Family History Records Found Advance Directives Documents on File Type Date Recorded Patient Automation And Controls Supervisor Expl anation ACP-Advance Directive ACP-Power of Director Of Vital Statistics Latest Code Status on File Code Status Date Activated Date Inactivated Comments Full Code 08/12/2013 2:47 PM 08/14/2013 12:08 PM Documents on File Type Date Recorded Patient Automation And Controls Supervisor Expl anation Advance Directives and Living Will Power of Director Of Vital Statistics Latest Code Status on File Code Status Date Activated Date Inactivated Comments Full Code 08/12/2013 2:47 PM 08/14/2013 12:08 PM Reason for Referral Specialty Diagnoses / Procedures Referred By Contac t Referred To Contact Radiology Diagnoses Breast cancer screening by mammogram Procedures DOLLY DENNIS DIGITAL SCREEN SELF REFERRAL W OR WO CAD BILATERAL Aditi Guevara, ASSEMBLER FOR PULLER OVER MACHINE - SULF[employer]ANT SUPERVISOR [address] [place] [address] Referral ID Status Reason Start Date Expiration Date Visits Re quested Visits Authorized [id number] Closed 05/29/2021 05/29/2022 1 1 Additional Source Comments INFORMATION SOURCE (unrecogn ized section and content) DATE CREATED AUTHOR 10/31/2017 [facility] DATE CREATED AUTHOR AUTHOR'S ORGANIZ ATION 11/06/2017 [facility] DATE CREATED AUTHOR AUTHOR'S ORGANIZ ATION 07/17/2022 [facility] DATE CREATED AUTHOR AUTHOR'S ORGANIZ ATION 07/14/2023 [facility] Reason for Visit (unrecogniz ed section and content) Specialty Diagnoses / Procedures Referred By Contac t Referred To Contact Radiology Diagnoses Breast cancer screening by mammogram Procedures DOLLY DENNIS DIGITAL SCREEN SELF REFERRAL W OR WO CAD BILATERAL Aditi Guevara, ASSEMBLER FOR PULLER OVER MACHINE - [employer] SUPERVISOR [address] [place] [address] Referral ID Status Reason Start Date Expiration Date Visits Re quested Visits Authorized [id number] Closed 05/29/2021 05/29/2022 1 1 Care Teams (unrecognized sec tion and content) Electric Meter Technician Relationship Specialty Start Date End Date Kaushik Jay MD [address] [id number] PCP - General 05/07/13 FOR RECORDS PERTAINING TO PATIENTS WHO ARE OR HAVE BEEN ENROLLED IN A CHEMICAL DEPENDENCY/SUBSTANCEABUSE PROGRAM, SOME INFORMATION MAY BE OMITTED. This clinical summary was aggregated from multiple sources. Caution should be exercised in using it in the provision of clinical care. This summary normalizes information from multiple sources, and as a consequence, information in this document may materially change the coding, format and clinical context of patient data. In addition, data may be omitted in some cases. CLINICAL DECISIONS SHOULD BE BASED ON THE PRIMARY CLINICAL RECORDS. [facility]. provides no warranty or guarantee of the accuracy or completeness of information in this document.
== END 2023-11-26 09:56 | disposition home or self-care (01) ==
LOC: EC 09:56
PROVIDERS: Visit Provider Podiatrist Foot & Ankle Surgery
DX: M21.071 Valgus deformity, not elsewhere classified, right ankle (principal); M79.671 Pain in right foot; Z98.1 Arthrodesis status
CPT/HCPCS: 73610; 73630

== ENCOUNTER 2023-12-06 10:10 | Outpatient (OUT) | payer OTHER, SELFPAY ==
--- OUTSIDE RECORDS SUMMARY | 2023-12-06 10:16 | XMS_ITS | CCD ---
Author Organization [facility] Care Team Providers Care Metallurgical Engineering Technician Name Role Phone DRAKE BEULAH Unavailable Unavailable Kaushik Jay MD Primary Care Provider Kaushik Jay MD Primary Care Provider BETTE [...] Unavailable HIGHLBETTE CAVANAUGH Admitting Unavailable ZIEBER, DR JERRY Herrera Consulting Unavailable HIGHLBTETE CAVANAUGH Consulting Unavailable ADITI GUEVARA Referring UnavailREX [...] Take 10 mg by mouth 0 Active [place]-3 Fatty Acids (FISH OIL BURP-LESS PO) (2 sources) [place]-3 Fatty Acids (FISH OIL BURP-LESS PO) Take [...] 05-17-2022 Chronic Other aftercare (1 source) 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 Performed By: #### H PVH #### [facility] [address] [place] [address] New Car Make Ready Mechanic: Robert Nguyễn MD HPV Type 16 Not detected [facility] Comment on above: Performed By: #### H PVH #### [facility] [place] [address] New Car Make Ready Mechanic: Robert Nguyễn MD HPV Type 18 Not detected [facility] Comment on above: Performed By: #### H PVH #### [facility] [address] [place] [address] New Car Make Ready Mechanic: Robert Nguyễn MD Other High Risk HPV Not detected Normal [facility] Comment on above: Performed By: #### H PVH #### [id number] [place], [place] [id number] New Car Make Ready Mechanic: Robert Nguyễn MD HPV DNA High Riskon 06-14-19 24 HPV Sample .THIN PREP Normal [facility] Comment on above: Performed By: #### H PVH #### [address] [id number] New Car Make Ready Mechanic: Robert Nguyễn MD Source CERVICAL MATERIAL Normal [facility] Comment on above: Performed By: #### H PVH #### [address] [id number] New Car Make Ready Mechanic: Robert Nguyễn MD Cytology Reporton 06-13-2023 Cytology report Cyto stain.thin prep Doc (Cvx/Vag) (NOTE) Path Number: [id number] DIAGNOSIS Imaged ThinPrep Pap - Cervical (1 monolayer slide): Specimen Adequacy: Satisfactory for evaluation. - Endocervical/transformati on zone component present. Descriptive Diagnosis: Negative for intraepithelial lesion or malignancy. Comments: Specimen was screened at [facility], [address] [place] [id number] Cytotech Screener: SHERRY Electronically Signed Out YEHUDA [...] or for other forensic purposes. Performed at [address] [address] ([phone] Source of Specimen: A: Imaged ThinPrep Pap - Cervical (1 monolayer slide) HPV Reflex?.................. ....HPV Regardless Clinical History Postmenopausal Z12.4 Encounter for screening for malignant neoplasm of cervix LMP: 04/22/2019 Processing Lab: [address] [id number] [place] [address] This Pap Test has been evaluated with [...] GYNECOLOGIC CYTOLOGY REPORT Patient Name: MIMI LAMBERT [facility] Rec: [id number] [facility] ANATOMIC PATHOLOGY [address] [place] [address]. [place], [place] [address] Normal [facility] - Microbiology an d Antimicrobial susceptibilityon 06-13-2023 HPV 16+18+31+33+35+45+5 1+52+56 DNA Probe Ql (Cvx) HPV-DNA Test Invalid Interpretation Code [facility] DENNIS DIGITAL SCREEN FREDRICK Moncada 06-12-2023 [facility] DENNIS DIGITAL SCREEN BILATERAL EXAMINATION: SCREENING DIGITAL [...] to the patient regarding the results. The [employer] recommends annual mammograms for women 40 years and older. Interpreted by: Carl Hernandez DO Signed by: Carl Hernandez DO 06/12/23 CC Recipients: Aditi Guevara APRN - CNM - In Basket Final result Normal [facility] Radiologyon 06-12-2023 MG Breast Screening Mammogram Invalid Interpretation Code 50 - 74 HengZhi POINT OF CARE GLUCOSEon 04-12 Glucose [Mass/Vol] 120 mg/dL Critically high 74-106 [facility] Comment on above: Performed By: #### P OCGLUC ####[facility] [address] [place], [place] [address]Jc. Aleyda Hwang Glucose [Mass/Vol] 86 mg/dL Normal 74-106 [facility] Comment on above: Performed By: #### P OCGLUC ####[facility] [address] [place] [id number]. Aleyda Hwang Covid-19 PCR (CVDTBH)on 04-12 SARS-CoV-2 (COVID-19) RNA KIT+probe Ql (Unsp spec) Not detected Normal NOT DETECTED [facility] Comment on above: Result Comment: This test is not yet approved or cleared by the [place] FDA. When there are no FDA-approved or cleared tests available, and other criteria are met, FDA can make tests available under an emergency access mechanism called an Emergency Use Authorization (EUA). The EUA for this test is supported by the [place] of Health and Human Service's (HHS's) declaration [...] consistent with SARS-CoV-2. Performed By: #### [facility] [employer] [facility] [employer] #### [facility] [address] [place] [address] Dr. Aleyda Hwang CBC AUTO DIFFon 04-16-2022 BASO # 0.0 103/ul Normal 0.0-0.1 [facility] Comment on above: Performed By: #### C BC #### [facility] [address] [place] [address] Dr. Aleyda Hwang Basophils/100 WBC (Bld) 0.5 % Normal 0.2-2.0 [facility] Comment on above: Performed By: #### C BC #### [facility] [address] [place] [address] Dr. Aleyda Hwang EO # 0.3 103/ul Normal 0.0-0.7 [facility] Comment on above: Performed By: #### C BC #### [facility] [address] [place] [address] Dr. Aleyda Hwang Eosinophils/100 WBC (Bld) 4.5 % Normal 0.9-7.0 [facility] Comment on above: Performed By: #### C BC #### [facility] [address] [place] [address] Dr. Aleyda Hwang Erythrocyte distribution width (RBC) [Ratio] 12.8 % Normal 11.0-15.0 [facility] Comment on above: Performed By: #### C BC #### [facility] [address] [place] [address] Dr. Aleyda Hwang Hematocrit (Bld) [Volume fraction] 39.5 % Normal 36.0-48.0 [facility] Comment on above: Performed By: #### C BC #### [facility] [address] [place] [address] Dr. Aleyda Hwang Hemoglobin (Bld) [Mass/Vol] 13.4 g/dL Normal 12.0-16.0 [facility] Comment on above: Performed By: #### C BC #### [facility] [address] [place] [address] Dr. Aleyda Hwang IG # 0.02 10e3/ul Normal 0.00-0.03 [facility] Comment on above: Performed By: #### C BC #### [facility] [address] [place] [address] Dr. Aleyda Hwang IG % 0.3 % Normal 0.0-0.5 [facility] Comment on above: Performed By: #### C BC #### [facility] [address] [place] [address] Dr. Aleyda Hwang LYMPH # 1.7 103/ul Normal 1.2-3.8 [facility] Comment on above: Performed By: #### C BC #### [facility] [address] [place] [address] Dr. Aleyda Hwang Lymphocytes/100 WBC (Bld) 26.9 % Normal 20.5-60.0 [facility] Comment on above: Performed By: #### C BC #### [facility] [address] [place] [address] Dr. Aleyda Hwang MANUAL DIFF REQ NO Normal [facility] [place] [facility] Comment on above: Performed By: #### C BC #### [facility] [address] [place] [address] Dr. Aleyda Hwang MCH (RBC) [Entitic mass] 30.1 pg Normal 26.7-34.0 [facility] Comment on above: Performed By: #### C BC #### [facility] [address] [place] [address] Dr. Aleyda Hwang MCHC (RBC) [Mass/Vol] 33.9 g/dL Normal 29.9-35.2 [facility] Comment on above: Performed By: #### C BC #### [facility] [address] [place] [address] Dr. Aleyda Hwang MCV (RBC) [Entitic vol] 88.8 fL Normal 81.0-99.0 [facility] Comment on above: Performed By: #### C BC #### [facility] [address] [place] [address] Dr. Aleyda Hwang MONO # 0.4 103/ul Normal 0.3-0.8 [facility] Comment on above: Performed By: #### C BC #### [facility] [address] [place] [address] Dr. Aleyda Hwang Monocytes/100 WBC (Bld) 6.8 % Normal 1.7-12.0 [facility] Comment on above: Performed By: #### C BC #### [facility] [address] [place] [address] Dr. Aleyda Hwang NEUT # 3.8 103/ul Normal 1.4-6.5 [facility] Comment on above: Performed By: #### C BC #### [facility] [address] [place] [address] Dr. Aleyda Hwang Neutrophils/100 WBC (Bld) 61.0 % Normal 43.0-75.0 [facility] Comment on above: Performed By: #### C BC #### [facility] [address] [place] [address] Dr. Aleyda Hwang Platelet mean volume (Bld) [Entitic vol] 8.7 fL Critically low 9.5-13.5 [facility] Comment on above: Performed By: #### C BC #### [facility] [address] [place] [address] Dr. Aleyda Hwang PLT 202 103/ul Normal 150-450 [facility] Comment on above: Performed By: #### C BC #### [facility] [address] [place] [address] Dr. Aleyda Hwang RBC 4.45 106/ul Normal 4.20-5.40 [facility] Comment on above: Performed By: #### C BC #### [facility] [address] [place] [address] Dr. Aleyda Hwang WBC 6.2 103/ul Normal 4.0-11.0 [facility] Comment on above: Performed By: #### C BC #### [facility] [address] [place] [address] Dr. Aleyda Hwang PROF CHEM 8 (BAS METB)on Anion gap [Moles/Vol] 10.7 mmol/L Normal [facility] Comment on above: Performed By: #### B MP #### [facility] [address] [place] [address] Dr. Aleyda Hwang Calcium [Mass/Vol] 9.6 mg/dL Normal 8.5-10.1 [facility] Comment on above: Performed By: #### B MP #### [facility] [address] [place] [address] Dr. Aleyda Hwang Chloride [Moles/Vol] 102 mmol/L Normal 98-107 [facility] Comment on above: Performed By: #### B MP #### [facility] [address] [place] [address] Dr. Aleyda Hwang CO2 [Moles/Vol] 31.3 mmol/L Normal 21.0-32.0 [facility] Comment on above: Performed By: #### B MP #### [facility] [address] [place] [address] Dr. Aleyda Hwang Creatinine [Mass/Vol] 0.71 mg/dL Normal 0.55-1.02 [facility] Comment on above: Performed By: #### B MP #### [facility] [address] [place] [address] Dr. Aleyda Hwang EGFR-AF ETHIOPIAN >60 Normal >=60 [facility] Comment on above: Performed By: #### B MP #### [facility] [address] [place] [address] Dr. Aleyda Hwang EGFR-NON AF ETHIOPIAN >60 Normal >=60 [facility] Comment on above: Performed By: #### B MP #### [facility] [address] [place] [address] Dr. Aleyda Hwang Glucose [Mass/Vol] 96 mg/dL Normal 74-106 [facility] Comment on above: Performed By: #### B MP #### [facility] [address] [address] [address] Aleyda Hwang Potassium [Moles/Vol] 4.0 mmol/L Normal 3.5-5.1 [facility] Comment on above: Performed By: #### B MP #### [facility] [address] [address] [address] Aleyda Hwang Sodium [Moles/Vol] 140 mmol/L Normal 136-145 [facility] Comment on above: Performed By: #### B MP #### [facility] [address] [address] [address] Aleyda Hwang Urea nitrogen [Mass/Vol] 16.0 mg/dL Normal 7.0-18.0 [facility] Comment on above: Performed By: #### B MP #### [facility] [address] [address] [address] Aleyda Hwang Urea nitrogen/Creatinine [Mass ratio] 22.5 mg/mg Normal [facility] Comment on above: Performed By: #### B MP #### [facility] [address] [address] [address] Aleyda Hwang XR FOOT ROJELIO MIN [...] DE OCA Date: 2021-12-07 06:24 Normal [facility] DOLLY DENNIS DIGITAL SCREEN SELF REFERRAL W OR WO CAD BILATERALon 05-29-2021 No mammographic evid ence of malignancy. Based on the Tyrer-Cuzick (JOSE L) model, this patient's lifetime risk for developing breast cancer is 21.5%. The [employer] considers women with a 20 [...] Assistance, if requested, is available through the [employer] [facility] Program at [phone], or by placing an [facility] referral to the High-Risk Breast Clinic . BIRADS: BIRADS - CATEGORY 1 Negative. Normal interval follow-up is recommended in 12 months. OVERALL ASSESSMENT - NEGATIVE A letter of notification will be sent to the patient regarding the results. The [employer] recommends annual mammograms for women 40 years and older. [facility] EXAMINATION: SCREENING DIGITAL BILATERAL MAMMOGRAM WITH [...] distortion or significant interval changes are detected. [facility] Radiology Study observation (narrative) [employer] Phone: [facility] DENNIS DIGITAL SCREEN SELF REFERRAL W OR WO CAD BILATERALOrdered By: Eran Jolly on 05-29-2021 [employer] Phone: POTASSIUMon 08-15-2017 Potassium molar conc 4.6 mmol/L Normal 3.5-5.4 [facility] Comment on above: Result Comment: EFFECTIVE 06/24/2017 CLINICAL CHEMISTRY PLATFORM CHANGES IN MAIN LABORATORY ARE ASSOCIATED WITH REFERENCE RANGE CHANGES FOR A NUMBER OF ANALYTES. PLEASE REVIEW REFERENCE INTERVALS CAREFULLY [employer]. [address] [place], [place] [address]Laboratory Director: Josue Cristobal M.D.CLIA No. [id number] CAP Accreditation No. [id number] COMPREHENSIVE METABOLIC PANE L WITH GFRon 08-06-2017 [...] mass conc 91 mg/dL Normal 70-99 [facility] Comment on above: Result Comment: DIAG [...] to HDL Ratio 1.6 Normal <3.5 [facility] LDL-CHOL, CALCULATED 109 mg/dL Normal <130 [...] ANALYTES. PLEASE REVIEW REFERENCE INTERVALS CAREFULLY [employer]. [address] [place], [place] [address]Laboratory Director: Josue Cristobal M.D.CLIA No. [id number] CAP Accreditation No. [id number] CBC W/AUTO DIFFon 08-05-2017 % NEUTROPHILS 65.4 [...] CNOV Office Visit (ORTHAB) PATSY LAMBERT Yesenia ([id number]) 1965 FDate Time Provider Department12/27/16 11:30 AM [...] Prescriptions:HERBAL COMPLEX NO.218 (SERENAGEN ORAL) Take by mouth.[place]-3 Fatty Acids-Vitamin E (FISH OIL) 1,000 mg cap Take 1 capsule by mouth.PSYLLIUM SEED, WITH SUGAR, (METAMUCIL ORAL) Take by mouth.loratadine (CLARITIN) 10 mg tablet Take 10 mg by mouth once daily.No current facility-administered medications for this visit.ALLERGIESNo Known AllergiesPAST SURGICAL [id number]: [id number]: VEIN SURGERY (SPECIFY LOCATION) HX RightFAMILY HISTORY [...] disease), ankle and foot, leftZ09 Surgery follow-up obzfppubzzxD21.0, R20.2 Numbness and tingling of footPLAN:Explained to the patient etiology and treatment plan.Treatment options discussed at [facility] observe for nowI discussed with the patient new custom molded Foot OrthosisShe has an old set of custom molded Foot OrthosisAll questions were answered. Mimi Lambert appeared to be well informed.Beulha Juan DPMReferring Provider: SELF [[id number]]Allergies As of Date: [...] Indications: PAIN Disc: Discontinued by PatientEncounter Number: [id number] Status:Closed by BEULAH JUAN DPM on 12/27/16 [facility] PROGRESSon 12-27-2016 PROGRESS HNO ID: [id number] thor: Beulah Perez: (none)Author Type: PhysicianType: Progress [...] Prescriptions:HERBAL COMPLEX NO.218 (SERENAGEN ORAL) Take by mouth.[place]-3 Fatty Acids-Vitamin E (FISH OIL) 1,000 mg cap Take 1 capsule bymouth.PSYLLIUM SEED, WITH SUGAR, (METAMUCIL ORAL) Take by mouth.loratadine (CLARITIN) 10 mg tablet Take 10 mg by mouth once daily.No current facility-administered medications for this visit.ALLERGIESNo Known AllergiesPAST SURGICAL [id number]: [id number]: VEIN SURGERY (SPECIFY LOCATION) HX RightFAMILY HISTORY [...] disease), ankle and foot, leftZ09 Surgery follow-up pvmbplzrvfxA23.0, R20.2 Numbness and tingling of footPLAN:Explained to the patient etiology and treatment plan.Treatment options discussed at [facility] observe for nowI discussed with the patient new custom molded Foot OrthosisShe has an old set of custom molded Foot OrthosisAll questions were answered. Mimi Lambert appeared to be wellinformed.Beulah Juan DPM Normal [facility] Encounters Encounter Date Encounter Type Care Provider Facility Start: 11-19-2023 [facility] SUJIT jackson Other [facility] Office Start: 10-02-2023 Office outpatient ne w 30 minutes Babita Boyce Other [facility] Office Start: 06-13-2023 End: 06-14-2023 [facility] Start: 06-12-2023 End: 06-15-2023 ambulatory KAUSHIK JAY [facility] Start: 07-11-2022 End: 07-12-2022 ambulatory BETTE DUFF Facility:H1 Start: 06-12-2022 End: 06-13-[address] JERRY ZHANG Facility:[facility]1 Start: 05-25-2022 End: 05-26-2022 ambulatory BETTE Aguilar [facility] Facility:[facility]1 Start: 04-30-2022 Encounter for preprocedural laboratory examination [facility] Start: 04-30-2022 End: 04-30-2022 ambulatory BETTE Aguilar [facility] Facility:[facility]1 Start: 04-26-2022 End: 04-27-2022 ambulatory BETTE Aguilar [facility] Facility:H1 Start: 04-26-2022 End: 04-27-2022 Encounter for preprocedural laboratory examination BETTE Aguilar [facility] Facility:H1 Start: 04-21-2022 Encounter for other preprocedural examination [facility] Start: 04-16-2022 End: 04-17-2022 ambulatory BETTE Aguilar [facility] Facility:H1 Start: 12-06-2021 End: 12-07-2021 ambulatory BETTE Aguilar [facility] Facility:H1 Start: 05-29-2021 End: 05-31-2021 Subsequent hospital visit by physician [facility] Mammography Room At [facility] Mammography Comment on above: Breast cancer screen ing by mammogram Start: 05-21-2019 End: 05-21-2019 Subsequent hospital visit by physician Kaushik Jay MD Work Phone: [facility] Laboratory Comment on above: Encounter for annual routine gynecological examination Start: 12-27-2016 End: 12-27-2016 Ambulatory BEULAH JUAN [facility] Procedures Date Procedure Procedure Detail Performing Clinician Start: 11-19-2023 Docrev cur meds by e lig clin Dusty Eldridge Start: 11-19-2023 [facility] Start: 05-29-2021 Screening mammograph y bi 2-view breast inc cad Aditi Guevara STEEL WELDER - [employer] TECHNICIAN Work Phone: Start: 05-21-2019 Microscopic observat ion [Identifier] in Cervix by Cyto stain Mth Mt Plan of Treatment Date Care Activity Detail Author Start: 08-05-2022 Lipid panel Lipid screen [facility] Start: 08-05-2022 Lipid screen Lipid screen [facility] Work Phone: Start: 05-29-2022 Screening for malign ant neoplasm of breast Breast cancer screen [facility] Start: 05-21-2022 Screening for malign ant neoplasm of cervix [facility] Start: 02-28-2022 Depression Screen Depression Screen [facility] Start: 06-13-2021 End: 06-13-2021 Patient encounter procedure 06/13/2021 Office Visit Primary Care Kaushik Jay MD [address] [place] [address] [facility] Start: 01-28-2021 COVID-19 Vaccine (3 - Booster for Pfizer series) COVID-19 Vaccine (3 - Booster for Pfizer series) [facility] Start: 01-11-2021 Influenza vaccination Flu vaccine (# 1) [facility] Start: 05-21-2020 HIV screen HIV screen [facility] Work Phone: Comment on above: Postponed from 05/15 (Patient Refused) Start: 05-21-2020 Influenza vaccination Flu vaccine (# 1) [facility] Work Phone: Comment on above: Postponed from 01/11 (Patient Refused) Start: 05-21-2020 Shingles Vaccine (1 of 2) Shingles Vaccine (1 of 2) [facility] [employer] Phone: Comment on above: Postponed from 05/15 (Unavailable) Start: 06-11-2019 DTaP/Tdap/Td vaccine (1 - Tdap) DTaP/Tdap/Td vaccine (1 - Tdap) [facility] Work Phone: Comment on above: Postponed from 05/15 (Not Indicated) Start: 04-17-2019 Cervical cancer screen Cervical canc er screen [employer] Phone: Start: 2017 Breast cancer screen Breast cancer s vandaen [employer] Phone: Start: 2016 Colon cancer screen colonoscopy Colon cancer screen colonoscopy [employer] Phone: Start: 2016 Shingles Vaccine (1 of 2) Shingles Vaccine (1 of 2) [employer] Start: 2011 Screening for malign ant neoplasm of colon Colon cancer screen colonoscopy [employer] Start: 2001 Diabetes screen Diabetes screen [facility] Start: 1996 Screening for malign ant neoplasm of cervix HPV (without or with Pap) [employer] Start: 1985 DTaP/Tdap/Td vaccine (1 - Tdap) DTaP/Tdap/Td vaccine (1 - Tdap) [employer] Start: 1981 HIV screening HIV screen [facility] [place] Start: 1966 Hepatitis C screening Hepatitis C sc reen [employer] End: 05-21-2019 Cytopathology procedure, preparation of smear, genital source PAP SMEAR Lab Routine Encounter for annual routine gynecological examination 1 Occurrences starting 05/21/2019 until 05/21/2019 [employer] Phone: Comment on above: 1 Occurrences starti ng 05/21/2019 until 05/21/2019 Payers Date Payer Category Payer Unknown [employer] [address] xxxxxxxxxxxx 2015-Present [phone] [address] [place] [address] xxxxxxxxxxxx [id number] 1965 Unknown [id number] 1965 Unknown [id number] 1966 Unknown [id number] 1966 Unknown [id number] 1965 Unknown [id number] 1965 Unknown [id number] 1965 Unknown [id number] 1965 Unknown [id number] [id number] 1965 Unknown [id number] 1959 Unknown [id number] Social History Date Type Detail Facility Start: 05-04-2013 End: 05-21-2019 Tobacco smoking status [facility] Never smoked tobacco [employer] Phone: Start: 05-04-2013 Tobacco use and exposure Smokeless tobacco non-user [employer] Phone: Start: 05-21-2019 End: 05-29-2021 Alcohol intake Current non-drinker of alcohol (finding) [employer] Phone: Start: 02-28-2021 History SDOH Financial 5 [employer] Phone: Start: 02-28-2021 History SDOH Food Worry 1 [employer] Phone: Start: 02-28-2021 History SDOH Transpo rt Med 2 [employer] Phone: Start: 1965 Sex Assigned At Not on file [facility] [employer] Phone: Clinical Note 07-11-2022 Note Date & [...] MONTES DE OCA Date: 2022-07-11 17:48 [facility] Clinical Note 06-12-2022 Note Date [...] authenticated by: JERRY ZHANG Date: 2022-06-12 15:11 [facility] Clinical Note 05-25-2022 Note Date & Type [...] authenticated by: JERRY ZHANG Date: 2022-05-25 16:11 [facility] Clinical Note 05-01-2022 Note Date & Type [...] authenticated by: JERRY ZHANG Date: 2022-04-30 22:03 [facility] Clinical Note 05-01-2022 Note Date & Type [...] by: JERRY ZHANG Date: 2022-04-30 22:03 [facility] Clinical Note 04-30-2022 Note Date [...] authenticated by: JERRY ZHANG Date: 2022-04-30 21:59 [facility] Evaluation note Note Date & Type Note Facility Evaluation note Diagnosis Breast cancer screening by mammogram documented in this encounter [employer] Phone: Evaluation note Note Date & Type Note Facility Evaluation note Diagnosis Encounter for annual routine gynecological examination documented in this encounter [employer] Phone: Summary Purpose Family History No Family History Records FoundNo Family History Records FoundNo Family History Records FoundNo Family History Records Found Advance Directives Documents on File Type Date Recorded Patient Bowling Ball Patcher Expl anation ACP-Advance Directive ACP-Power of Colon Therapist Latest Code Status on File Code Status Date Activated Date Inactivated Comments Full Code 08/12/2013 2:47 PM 08/14/2013 12:08 PM Documents on File Type Date Recorded Patient Bowling Ball Patcher Expl anation Advance Directives and Living Will Power of Colon Therapist Latest Code Status on File Code Status Date Activated Date Inactivated Comments Full Code 08/12/2013 2:47 PM 08/14/2013 12:08 PM Reason for Referral Specialty Diagnoses / Procedures Referred By Contac t Referred To Contact Radiology Diagnoses Breast cancer screening by mammogram Procedures DOLLY DENNIS DIGITAL SCREEN SELF REFERRAL W OR WO CAD BILATERAL Adtii Guevara, STEEL WELDER - ZYGLO TECHNICIAN [address] [place] [address] Referral ID Status Reason Start Date Expiration Date Visits Re quested Visits Authorized [id number] Closed 05/29/2021 05/29/2022 1 1 Additional Source Comments INFORMATION SOURCE (unrecogn ized section and content) DATE CREATED AUTHOR 10/31/2017 Pathology [facility] DATE CREATED AUTHOR AUTHOR'S ORGANIZ ATION 11/06/2017 [facility] DATE CREATED AUTHOR AUTHOR'S ORGANIZ ATION 07/17/2022 [facility] DATE CREATED AUTHOR AUTHOR'S ORGANIZ ATION 07/14/2023 [facility] Reason for Visit (unrecogniz ed section and content) Specialty Diagnoses / Procedures Referred By Contac t Referred To Contact Radiology Diagnoses Breast cancer screening by mammogram Procedures DOLLY DENNIS DIGITAL SCREEN SELF REFERRAL W OR WO CAD BILATERAL Aditi Guevara, STEEL WELDER - ZYGLO TECHNICIAN [address] [place] [address] Referral ID Status Reason Start Date Expiration Date Visits Re quested Visits Authorized [id number] Closed 05/29/2021 05/29/2022 1 1 Care Teams (unrecognized sec tion and content) Metallurgical Engineering Technician Relationship Specialty Start Date End Date Kaushik Jay MD [address] [id number] PCP - General 05/07/13 FOR RECORDS PERTAINING [...] BE BASED ON THE PRIMARY CLINICAL RECORDS. [facility] [employer] [facility]. provides no warranty or guarantee of the accuracy or completeness of information in this document.
--- NOTE | 2023-12-06 10:21 | CT_ITS ---
[address] [address] Patient Name: MIMI BOWERS MRN: [id number] date: 1965 Sex: F Assigned Patient Location: CT Current Patient Location: Accession/Order Number: [id number] Exam Date: 12/06/2023 10:27 Report Date: 12/09/2023 11:04 At the request of: BETTE DUFF Procedure: CT ankle RT wo con EXAMINATION: CT ankle RT wo con HISTORY: Degenerative Joint Disease ; chronic right ankle pain COMPARISON: XR ankle right 11/26/2023 TECHNIQUE: Multi-planar CT images were created without and/or with IV contrast according to examination type. Dose reduction techniques were achieved by using automated exposure control and/or adjustment of mA and/or kV according to patient size and/or use of iterative reconstruction technique. FINDINGS: BONES: Small degenerative ossified at the anterior articular margin of the tibial plafond. No significant joint space narrowing or asymmetry. Posterior calcaneal osteotomy and repair via 2 lag screws. Anterior calcaneal osteotomy and wedge placement. Osteotomy and wedge placement within the medial cuneiform. SOFT TISSUES: Negative. No visible soft tissue swelling. EFFUSION: None visible. OTHER: Negative. CT/CT ankle RT wo con IMPRESSION: 1. Minimal degenerative changes of the ankle joint. 2. Stable surgical changes of the hindfoot and midfoot. Electronically authenticated by: JERRY ZHANG Date: 12/09/2023 11:04
== END 2023-12-06 10:11 | disposition home or self-care (01) ==
LOC: CT 10:14
PROVIDERS: PCP Family Medicine; Visit Provider Podiatrist Foot & Ankle Surgery
DX: M19.071 Primary osteoarthritis, right ankle and foot (principal); Z98.890 Other specified postprocedural states
CPT/HCPCS: 73700